=== PATIENT | female | born 1975 | race Caucasian/White ===

== ENCOUNTER 2016-12-18 06:10 | Day surgery (SDC) | payer OTHER, BC ==
[2016-12-18] MEDS ORDERED: Lactated Ringers 1,000 ML IV ONE ×2 (06:30→08:21)
[2016-12-18] MEDS ORDERED: Lactated Ringers 1,000 ML IV SCH (06:30)
[2016-12-18 06:44] VITALS: O2SAT 100
[2016-12-18] MEDS ORDERED: BENADRYL 50 MG/ML ONE (07:56)
[2016-12-18] MEDS ORDERED: DIPRIVAN 200 MG/20 ML IV ONE (08:00)
[2016-12-18] MEDS ORDERED: Ketamine HCl 50 MG/ML IV ONE (08:00)
--- NOTE | 2016-12-18 08:43 | OP ---
SURGERY DATE/TIME: 12/18/2016 0725 PREOPERATIVE DIAGNOSIS: Epigastric pain. POSTOPERATIVE DIAGNOSIS: Moderate gastritis. PROCEDURE: Esophagogastroduodenoscopy with biopsy. SURGEON: Dr. De Oliveira. ANESTHESIA: Medications were given by the anesthesia department. BRIEF HISTORY: The patient is a 41 year old white female patient who reports epigastric pain that she has had for the past several months for which she has been taking omeprazole on a daily basis without improvement. The patient is felt to need have endoscopic evaluation. She was appraised of the risks of the procedure including the risk of perforation, phlebitis, untoward reaction to medication, bleeding, and missed lesions. The patient verbalized her understanding and desired to have the procedure performed. DESCRIPTION OF PROCEDURE: The patient was given the medications by the anesthesia department. She had continuous pulse oximetry, ECG monitoring, intermittent blood pressure monitoring and tidal CO2 monitoring during the examination. She was placed in the left lateral decubitus position. A bite block was placed. The flexible Olympus gastroscope was used to intubate the oropharynx. A view of the larynx was obtained and this was normal. The scope was easily advanced in the esophagus which was normal throughout its length. The stomach was entered where normal gastric rugal folds were seen and these distended nicely with insufflation of air. There was noted to be a generalized erythema throughout the stomach. No erosions or ulcerations were encountered. The scope was passed along the greater curvature of the stomach to the antrum. The pylorus encountered and intubated. Duodenum inspected and found to be normal. The scope is then withdrawn towards the stomach. Again, a retroflex view was obtained of the lesser curvature, fundus and cardia regions of the stomach revealed a moderate erythema but no erosions or ulcerations. The scope was then redirected towards the antrum and biopsies were obtained to rule out the presence of Helicobacter pylori-type organisms. The scope was then removed from the patient who tolerated the procedure well and was sent [facility] good condition.
[2016-12-18 09:03] VITALS: BP 129/79; PULSE 73
== END 2016-12-18 09:20 | disposition home or self-care (01) ==
LOC: SDC 06:10
PROVIDERS: ATTEND Family Medicine
PROC: 0DB68ZX Excision of Stomach, Via Natural or Artificial Opening Endoscopic, Diagnostic (ICD-10-PCS; principal; 2016-12-18)
DX: K29.70 Gastritis, unspecified, without bleeding (principal)
CPT/HCPCS: 00740; 36415; 84703; J1200; J2704

== ENCOUNTER 2022-06-18 09:02 | Emergency (ER) | payer BC ==
[2022-06-18 09:18] VITALS: O2SAT 98
[2022-06-18] MEDS ORDERED: Zofran 4 MG/2 ML VIAL IV ONE (09:22)
[2022-06-18] MEDS ORDERED: Hydromorphone 1 mg/ml Injection IV ONE (09:22)
--- NOTE | 2022-06-18 09:23 | ERPHSYRPT ---
- History of Present Illness Time Seen by Provider: 06/18/22 09:20 Source: patient Exam Limitations: no limitations Patient Subjective Stated Complaint: PT states "I have an odd headache. It started at work around 4 am this morning and it went away and now it is back and it is worse than before." Triage Nursing Assessment: Pt presented alert and orietned x 3, skin pwd Pt ambulates with a slow gait, pt crying and holding her left side of her head. Physician History: This is a 47-year-old female who has a history of hypertension and has had migraine headaches in the past and presents with the worst headache she is ever had. 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 She rinsed out her eye well. She had a headache that was more or less generalized. Patient took Excedrin. There was slight improvement but then the headache returned worse than before and on the left side of her head. She has no visual changes. She has no speech changes. She is never had history of stroke. She denies injury to her head. Patient does have a history of hypertension, anxiety issues and gastroesophageal reflux disease. Patient states that she takes her blood pressure medication at nighttime and she did take her medications last evening. Patient's primary care provider is Dr. Carroll. Up until the time when the headache began, the patient states that she was doing well and feeling well. Patient denies any new stressors in her life. Timing/Duration: today, worse Quality: aching, throbbing (Left side of head) Head Pain Location: temporal (Left) Severity of Pain-Max: moderate Severity of Pain-Current: moderate Recent Head Trauma: no recent headache/trauma Modifying Factors: Improves With: movement, noise Associated Symptoms: No neck pain, No sensitive to light Previous symptoms: no prior history Allergies/Adverse Reactions: No Known Drug Allergies Allergy (Verified 06/18/22 09:18) Home Medications: Citalopram Hydrobromide 20 mg* [ceLEXa 20 MG] 20 mg PO DAILY 12/18/16 [History] Lisinopril 10 mg [Zestril 10 MG] 15 mg PO DAILY 12/18/16 [History] Meredith-3 Fatty Acids [Fish Oil] 300 mg PO DAILY 12/18/16 [History] Omeprazole Magnesium [Prilosec Otc] 20 mg PO DAILY 12/18/16 [History] Hx Tetanus, Diphtheria Vaccination/Date Given: No Hx Influenza Vaccination/Date Given: Yes Hx Pneumococcal Vaccination/Date Given: No Immunizations Up to Date: Yes Travel Risk - International Travel Have you traveled outside of the country in past 3 weeks: No - Coronavirus Screening Are you exhibiting any of the following symptoms?: Yes Symptoms: Headaches/Body Aches/Fatigue Close contact with a COVID-19 positive Pt in past 14-21 Days: No - Vaccine Status Have you recieved a Covid-19 vaccination: Yes 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: [employer] - Review of Systems Constitutional: No Symptoms Eyes: No Symptoms Ears, Nose, & Throat: No Symptoms Respiratory: No Symptoms Cardiac: No Symptoms Abdominal/Gastrointestinal: No Symptoms Genitourinary Symptoms: No Symptoms Musculoskeletal: No Symptoms Skin: No Symptoms Neurological: Headache Psychological: Anxiety Endocrine: No Symptoms Hematologic/Lymphatic: No Symptoms Immunological/Allergic: No Symptoms All Other Systems: Reviewed and Negative - Past Medical History Pertinent Past Medical History: Yes Neurological History: No Pertinent History ENT History: No Pertinent History Cardiac History: Hypertension Respiratory History: No Pertinent History Endocrine Medical History: No Pertinent History Musculoskeletal History: No Pertinent History GI Medical History: GERD History: No Pertinent History Psycho-Social History: Anxiety, Depression Female Reproductive Disorders: No Pertinent History - Past Surgical History Past Surgical History: Yes Neuro Surgical History: No Pertinent History Cardiac: No Pertinent History Respiratory: No Pertinent History Gastrointestinal: Cholecystectomy, Exploratory Laparoscopy Genitourinary: No Pertinent History Musculoskeletal: No Pertinent History Female Surgical History: Dilation & Curettage - Social History Smoking Status: Never smoker Exposure to second hand smoke: No Drug Use: none Patient Lives Alone: No - Female History Hx Last Menstrual Period: menopause Hx Now: No - Nursing Vital Signs Nursing Vital Signs: Initial Vital Signs Temperature 98.2 F 06/18/22 09:10 Pulse Rate 92 H 06/18/22 09:10 Respiratory Rate 22 06/18/22 09:10 Blood Pressure 171/107 06/18/22 09:10 O2 Sat by Pulse Oximetry 98 06/18/22 09:10 Pain Scale Pain Intensity 4 - Physical Exam General Appearance: moderate distress, alert, anxiety Eye Exam: PERRL/EOMI, eyes nml inspection Ears, Nose, Throat Exam: normal ENT inspection, moist mucous membranes Neck Exam: normal inspection, non-tender, supple, full range of motion Respiratory Exam: normal breath sounds, lungs clear, airway intact, No chest tenderness, No respiratory distress Cardiovascular Exam: regular rate/rhythm, normal heart sounds, normal peripheral pulses Gastrointestinal/Abdominal Exam: No tenderness Back Exam: normal inspection, normal range of motion, No CVA tenderness, No vertebral tenderness Extremity Exam: normal inspection, normal range of motion, pelvis stable Mental Status Exam: alert, oriented x 3, 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 Exam: normal hearing, normal speech, PERRL, tongue midline Motor/Sensory Exam: no motor deficit, no sensory deficit Skin Exam: normal color, warm, dry Lymphatic Exam: No adenopathy SpO2 Interpretation: normal SpO2: 98 O2 Delivery: Room Air - Course Nursing assessment & vital signs reviewed: Yes Ordered Tests: Active Orders 24 hr Category Date Time Status IV Insertion STAT Care 06/18/22 09:22 Active Pulse Oximetry (ED) STAT Care 06/18/22 09:22 Active HEAD WITHOUT CONTRAST [CT] Stat Exams 06/18/22 09:23 Completed CBC W DIFF Stat Lab 06/18/22 10:02 Completed CMP Stat Lab 06/18/22 10:02 Completed UA W/RFX CULTURE Stat Lab 06/18/22 09:35 Results Medication Summary Discontinued Medications Generic Name Dose Route Start Last Admin Trade Name Porfirio PRN Reason Stop Dose Admin Methylprednisolone Sodium 0 mg 06/18/22 10:12 06/18/22 10:16 Succinate 125 mg/ Sterile IV 06/18/22 10:13 125 mg Water 2 ml STAT ONE Administration Diphenhydramine HCl 25 mg 06/18/22 10:12 06/18/22 10:16 Diphenhydramine Hcl 50 Mg/Ml Vial IV 06/18/22 10:13 25 mg STAT ONE Administration Diphenhydramine HCl Confirm 06/18/22 10:15 Diphenhydramine Hcl 50 Mg/Ml Vial Administered 06/18/22 10:16 Dose 50 mg .ROUTE .STK-MED ONE Hydromorphone HCl 1 mg 06/18/22 09:22 06/18/22 09:26 Hydromorphone 1 Mg/1ml Inj 1 Mg/Ml Syringe IV 06/18/22 09:23 1 mg STAT ONE Administration Hydromorphone HCl Confirm 06/18/22 09:25 Hydromorphone 1 Mg/1ml Inj 1 Mg/Ml Syringe Administered 06/18/22 09:26 Dose 1 mg .ROUTE .STK-MED ONE Methylprednisolone Sodium Succinate Confirm 06/18/22 10:15 Methylprednis Sod Succ 125 Mg/2 Ml Vial Administered 06/18/22 10:16 Dose 125 mg .ROUTE .STK-MED ONE Ondansetron HCl 4 mg 06/18/22 09:22 06/18/22 09:26 Ondansetron Hcl 4 Mg/2 Ml Vial IV 06/18/22 09:23 4 mg STAT ONE Administration Ondansetron HCl Confirm 06/18/22 09:25 Ondansetron Hcl 4 Mg/2 Ml Vial Administered 06/18/22 09:26 Dose 4 mg .ROUTE .STK-MED ONE Lab/Rad Data: Laboratory Result Diagrams 06/18/22 10:02 06/18/22 10:02 Laboratory Results 06/18/22 06/18/22 06/18/22 Range/Units 10:02 10:02 09:35 WBC 5.4 (4.0-10.5) x10^3/uL RBC 3.73 L (4.1-5.4) x10^6/uL Hgb 11.6 L (12.0-16.0) g/dL Hct 34.4 L (35-47) % MCV 92.2 (78-100) fL MCH 31.1 (26-32) pg MCHC 33.7 (32-36) g/dL RDW 12.9 (11.5-14.0) % Plt Count 239 (150-450) x10^3/uL MPV 9.7 (7.5-11.0) fL Gran % 51.8 (36.0-66.0) % Immature Gran % (Auto) 0.2 (0.00-0.4) % Nucleat RBC Rel Count 0.0 (0.00-0.1) % Eos # (Auto) 0.12 (0-0.5) x10^3/uL Immature Gran # (Auto) 0.01 (0.00-0.03) x10^3u/L Absolute Lymphs (auto) 1.94 (1.0-4.6) x10^3/uL Absolute Monos (auto) 0.47 (0.0-1.3) x10^3/uL Absolute Nucleated RBC 0.00 (0.00-0.01) x10^3u/L Lymphocytes % 36.3 (24.0-44.0) % Monocytes % 8.8 (0.0-12.0) % Eosinophils % 2.2 (0.00-5.0) % Basophils % 0.7 (0.0-0.4) % Absolute Granulocytes 2.77 (1.4-6.9) x10^3/uL Basophils # 0.04 (0-0.4) x10^3/uL Sodium 139 (137-145) mmol/L Potassium 4.3 (3.5-5.1) mmol/L Chloride 107 (98-107) mmol/L Carbon Dioxide 21 L (22-30) mmol/L Anion Gap 15.7 H (5-15) MEQ/L BUN 13 (7-17) mg/dL Creatinine 0.70 (0.52-1.04) mg/dL Estimated GFR > 60.0 ML/MIN Glucose 113 H (74-106) mg/dL Calcium 9.4 (8.4-10.2) mg/dL Total Bilirubin 0.70 (0.2-1.3) mg/dL AST 44 H (14-36) U/L ALT 33 (0-35) U/L Alkaline Phosphatase 139 H (38-126) U/L Serum Total Protein 8.0 (6.3-8.2) g/dL Albumin 4.7 (3.5-5.0) g/dL Urinalys Dipstick Clnc Pending Urine Color LT.YELLOW (YELLOW) Urine Appearance CLEAR (CLEAR) Urine pH 6.0 (5-6) Ur Specific Ona 1.010 (1.005-1.025) POC Urine Protein Conf NEGATIVE (Negative) Urine Ketones NEGATIVE (NEGATIVE) Urine Nitrite NEGATIVE (NEGATIVE) Urine Bilirubin NEGATIVE (NEGATIVE) Urine Urobilinogen 0.2 (0-1) mg/dL Urine Leukocytes NEGATIVE (NEGATIVE) Urine WBC (Auto) 0-2 (0-5) /HPF Urine RBC (Auto) NONE (0-2) /HPF U Epithel Cells (Auto) OCCASIONAL (FEW) /HPF Urine Bacteria (Auto) RARE (NEGATIVE) /HPF Urine RBC NEGATIVE (0-5) Aman/ul Ur Culture Indicated? Pending Urine Glucose NEGATIVE (NEGATIVE) mg/dL - Progress Progress: improved, re-examined Air Movement: good Progress Note: 06/18/22 10:[address] scan without contrast of head Blood Culture(s) Obtained: No Antibiotics given: No Counseled pt/family regarding: lab results, diagnosis, need for follow-up, rad results - Departure Departure Disposition: Home Clinical Impression: Headache Condition: Stable Critical Care Time: No Referrals: MOSHE CARROLL MD [Primary Care Provider] - Follow up/PCP as directed Additional Instructions: Take all your medications as prescribed. Follow-up with your prescribing physician for further evaluation and management
[2022-06-18] MEDS ORDERED: Zofran 4 MG/2 ML VIAL ONE (09:25)
[2022-06-18] MEDS ORDERED: Hydromorphone 1 mg/ml Injection ONE (09:25)
[2022-06-18 09:55] LABS: ALBUMIN 4.7 g/dL (3.5-5.0); ALKALINE PHOSPHATASE 139 U/L (38-126); ANION GAP 15.7 MEQ/L (5-15); BLOOD UREA NITROGEN 13 mg/dL (7-17); CHLORIDE 107 mmol/L (98-107); Calcium 9.4 mg/dL (8.4-10.2); Carbon Dioxide 21 mmol/L (22-30); EST GLOMERULAR FILTRATION RATE > 60.0 ML/MIN; Glucose 113 mg/dL (74-106); Potassium 4.3 mmol/L (3.5-5.1); SGOT/AST 44 U/L (14-36); SGPT/ALT 33 U/L (0-35); SODIUM 139 mmol/L (137-145)
--- NOTE | 2022-06-18 09:56 | XRAY ---
Indication: Frontal headache. No known injury. Multiple contiguous axial images obtained through the head without contrast. Comparison: None Normal appearing brain parenchyma, ventricles, and bony calvarium for patient's age. Visualized paranasal sinuses and mastoid air cells are clear. Impression: Normal CT head without contrast exam.
[2022-06-18 10:04] LABS: Bacteria RARE /HPF (NEGATIVE); WBC 0-2 /HPF (0-5)
[2022-06-18 10:09] LABS: Absolute Neutrophil Ct (ANC) 2.77 x10^3/uL (1.4-6.9); Basophil (Absolute #) 0.04 x10^3/uL (0-0.4); Eosinophil % 2.2 % (0.00-5.0); Eosinophil (Absolute #) 0.12 x10^3/uL (0-0.5); Hematocrit 34.4 % (35-47); Hemoglobin 11.6 g/dL (12.0-16.0); Lymphocyte (Absolute #) 1.94 x10^3/uL (1.0-4.6); Lymphocytes % 36.3 % (24.0-44.0); Mean Cell Volume 92.2 fL (78-100); Mean Corpuscular Hemoglobin 31.1 pg (26-32); Mean Corpuscular Hgb Concent. 33.7 g/dL (32-36); Mean Platelet Volume 9.7 fL (7.5-11.0); Monocyte (Absolute #) 0.47 x10^3/uL (0.0-1.3); Monocytes % 8.8 % (0.0-12.0); Neutrophil % 51.8 % (36.0-66.0); Platelet Count 239 x10^3/uL (150-450); Red Blood Count 3.73 x10^6/uL (4.1-5.4); Red Cell Distribution Width 12.9 % (11.5-14.0); White Blood Count 5.4 x10^3/uL (4.0-10.5)
[2022-06-18] MEDS ORDERED: solu-MEDROL 125 MG, Sterile H2O 10 ml 2 ML IV ONE ×2 (10:12)
[2022-06-18] MEDS ORDERED: BENADRYL 50 MG/ML IV ONE (10:12)
[2022-06-18] MEDS ORDERED: BENADRYL 50 MG/ML ONE (10:15)
[2022-06-18] MEDS ORDERED: solu-MEDROL ONE (10:15)
[2022-06-18 10:32] LABS: Appearance CLEAR (CLEAR); Bilirubin NEGATIVE (NEGATIVE); Glucose NEGATIVE (NEGATIVE); Ketones NEGATIVE (NEGATIVE); Nitrite NEGATIVE (NEGATIVE); Protein,Urine Dip NEGATIVE (Negative); RBC NEGATIVE Ery/ul (0-5); Urobilinogen 0.2 mg/dL (0-1)
[2022-06-18 10:39] LABS: INFLUENZA A NEGATIVE (NEGATIVE); INFLUENZA B NEGATIVE (NEGATIVE); RESPIRATORY SYNCTIAL VIRUS NEGATIVE (Negative); SARS-CoV-2 Xpert Express NEGATIVE (NEGATIVE)
[2022-06-18 11:08] LABS: Dipstick done @ ? MAIN LAB
[2022-06-18 11:09] LABS: Urine Cultured Indicated? NO
[2022-06-18 11:38] VITALS: BP 124/86; PULSE 88
== END 2022-06-18 11:42 | disposition home or self-care (01) ==
LOC: ED 09:02
DX: R51.9 Headache, unspecified (principal); I10 Essential (primary) hypertension; Z79.899 Other long term (current) drug therapy
CPT/HCPCS: 0241U; 36000; 36415; 70450; 80053; 81015; 85025; 94760; 96374; 96375; 99284; J1170; J1200; J2405; J2930